=== PATIENT | male | born 2000 | race Caucasian/White ===

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

== ENCOUNTER 2020-08-02 14:56 | Emergency (ER) | payer MEDICAID, OTHER ==
[~2020-08-02] VITALS: Ht 172.7 cm; Wt 113.6 kg
[2020-08-02 15:51] LABS: BASOPHILS % (AUTO) 0.6 % (0-1); EOSINOPHILS # (AUTO) 0.2 X10'3 (0-0.9); HEMATOCRIT 50.1 % (42.0-52.0); HEMOGLOBIN 17.2 g/dl (14.0-17.9); LYMPHOCYTES # (AUTO) 1.7 X10'3 (1.1-4.8); LYMPHOCYTES % (AUTO) 24.3 % (21-51); MEAN CORPUSCULAR HEMOGLOBIN 29.2 PG (27.0-31.0); MEAN CORPUSCULAR HGB CONC 34.3 g/dL (33.0-36.5); MEAN CORPUSCULAR VOLUME 85.3 FL (78-98); MEAN PLATELET VOLUME 9.4 FL (7.4-10.4); MONOCYTES # (AUTO) 0.6 X10'3 (0-0.9); MONOCYTES % (AUTO) 9.4 % (2-12); NEUTROPHILS # (AUTO) 4.3 X10'3 (1.8-7.7); NEUTROPHILS % (AUTO) 62.7 % (42-75); PLATELET COUNT 306 X10'3 (140-440); RED BLOOD COUNT 5.87 X10'6 (4.70-6.10); WHITE BLOOD COUNT 6.8 X10'3 (4.5-11.0)
[2020-08-02 15:59] LABS: ALANINE AMINOTRANSFERASE 28 U/L (12-78); ALBUMIN 4.2 G/DL (3.4-5.0); ALBUMIN/GLOBULIN RATIO 1.1 (1.1-1.5); ALKALINE PHOSPHATASE 81 IU/L (20-180); ANION GAP 9 (8-16); ASPARTATE AMINO TRANSFERASE 16 U/L (10-37); BILIRUBIN,TOTAL 0.6 MG/DL (0.1-1.0); BLOOD UREA NITROGEN 6 MG/DL (7-18); BUN/CREATININE RATIO 5.4 (5.4-32.0); CALCIUM 9.2 MG/DL (8.5-10.1); CHLORIDE 103 MMOL/L (99-107); CREATININE 1.12 MG/DL (0.60-1.10); GLUCOSE 94 MG/DL (70-104); POTASSIUM 4.1 MMOL/L (3.5-5.1); SODIUM 138 MMOL/L (135-145); TOTAL CARBON DIOXIDE 25.9 MMOL/L (24-32); TOTAL PROTEIN 8.1 G/DL (6.4-8.2); eGFR 84 ML/MIN
[2020-08-02 16:19] LABS: ETHANOL < 0.010 GM/DL (0.0-0.010)
--- NOTE | 2020-08-02 16:33 | NUR ---
Pt denies active s/i at this time saying "I think about it and just wanted to come in before I did anything." Pt reports jumping in front of a car as his plan with no specific timeframe. pt reports being in [facility] ~ 4 months ago for OD attempt where purportedly he was started on long-term injectables. Pt denies H/I and audio/visual hallucinations at this time. Mood and affect are appropriate and WNL at this time. He is cooperative with staff and engages readily.
[2020-08-02 17:08] LABS: URINE AMPHETAMINE SCREEN NEGATIVE (Neg); URINE BARBITUATE SCREEN NEGATIVE (Neg); URINE BENZODIAZEPINES SCREEN NEGATIVE (Neg); URINE CANNABINOID SCREEN NEGATIVE (Neg); URINE COCAINE SCREEN NEGATIVE (Neg); URINE METHADONE SCREEN NEGATIVE (Neg); URINE OPIATE SCREEN NEGATIVE (Neg); URINE PHENCYCLIDINE SCREEN NEGATIVE (Neg)
--- NOTE | 2020-08-02 18:34 | NUR ---
ASSUMED CARE FROM KATALINA PURVIS. SPOKE WITH PATIENT COOPERATIVE DENIES ANY IDEATIONS AT THIS TIME SPOKE ABOUT HOW HE NEEDED TO CHECK IN BEFORE [facility]AS THOUGHTS PROGRESSED TO ACTION UPON HIS THOUGTHS
--- NOTE | 2020-08-02 18:44 | NUR ---
Myriam quinones in [facility] - 08/03/20 at 0053 by YUE FIORI RETURNED TO PATIENT
[2020-08-02 18:51] LABS: CLARITY,URINE CLEAR (Clear); COLOR,URINE YELLOW (Yellow); GLUCOSE, URINE NEGATIVE (Neg); KETONES,URINE NEGATIVE (Neg); LEUKOCYTE ESTERASE ,URINE NEGATIVE (Neg); NITRITES, URINE NEGATIVE (Neg); OCCULT BLOOD,URINE NEGATIVE (Neg); PH,URINE 6.5 (4.8-8.0); PROTEIN,URINE NEGATIVE (Neg); UROBILINOGEN,URINE 0.2 E.U/dL (0.2-1.0)
[2020-08-02 19:10] LABS: UA COLLECTION TYPE VOIDED
--- NOTE | 2020-08-02 19:16 | NUR ---
pt packet faxed to [facility]
[2020-08-02] MEDS ORDERED: QUET25TA34 PO (20:19)
--- NOTE | 2020-08-02 20:30 | NUR ---
SAT WITH PATIENT AND ASKED WHAT TRIGGERED HIS THOUGHTS OF SI HE REPORT THAT HIS FAMILY DOES A GROUP CHAT HIS FATHER SISTER AND HIMSELF AND THEY BEGAN ARGUING, IT MADE HIM SAD AND IT TRIGGERED THOUGHTS THAT HE DID NOT WANT TO LIVE ANY MORE AND BETTER COME IN TO BE SEEN
[2020-08-02] MEDS ORDERED: QUEtiapine 25mg tablet PO SCH (21:00)
--- NOTE | 2020-08-02 21:30 | NUR ---
AWAKE REQUESTING TO DRAW. COLORED CRAYONS AND PAPER GIVEN. NO OTHER REQUESTS, COOPERATIVE.
--- NOTE | 2020-08-02 22:30 | NUR ---
AWAKE HUMMING WHILE STARING AT CEILING. REDIRECTED AND ENGAGED IN CONVERSATION WITH FOCUSED INTENT. DENIES HALLUCINATIONS VISUAL OR AUDITORY. ANSWERS QUESTIONS APPROPRIATELY.
--- NOTE | 2020-08-02 23:30 | NUR ---
EYS CLOSED NO SIGN OF DISTRESSED FACIAL MUSCLES RELAXED
--- NOTE | 2020-08-03 00:30 | NUR ---
SLEEPING, EYES CLOSED EVEN AN UNLABORED RESPIRATIONS.
--- NOTE | 2020-08-03 01:30 | NUR ---
EYES CLOSED NO SIGNS OF DISTRESS
--- NOTE | 2020-08-03 02:11 | NUR ---
LYING ON RIGHT SIDE, EYES CLOSED RESPIRATION EVEN AND UNLABORED
--- NOTE | 2020-08-03 03:00 | NUR ---
eyes closed lying on left side. No signs of distress.
--- NOTE | 2020-08-03 03:56 | NUR ---
sleeping facial muslces relaxed no sign of distress. Respirations even and unlabored
--- NOTE | 2020-08-03 05:49 | NUR ---
uneventful night, no compaints slept for 6 hours.
--- NOTE | 2020-08-03 06:41 | NUR ---
patient asleep.We will monitor.
--- NOTE | 2020-08-03 09:06 | NUR ---
[facility] WITH PATIENT
--- NOTE | 2020-08-03 10:16 | NUR ---
Assumed care of the patient from Erasmo Del Toro RN. Pt is resting on the bed with even and unlabored respirations.
--- NOTE | 2020-08-03 11:22 | NUR ---
Pt swabbed for COVID-19 as a rapid swab to rule out viral infection for placement in a behavioral health facility. Pt reports his last drink of alcohol was over a month ago and he does not drink on a routine basis.
--- NOTE | 2020-08-03 11:52 | NUR ---
[facility]
--- NOTE | 2020-08-03 12:39 | NUR ---
Pt still has pending COVID-19 swab results. Pt has no change in condition.
--- NOTE | 2020-08-03 13:01 | NUR ---
Pt given a lunch tray, he is sitting upright eating lunch at this time.
--- NOTE | 2020-08-03 13:44 | NUR ---
Negative COVID results faxed to [facility] office. [facility] staff member phoned back to confirm receipt of the result and that [facility] has accepted the patient for admission but the transport time will not likely be scheduled to happen prior to 1900 today. Further details of the ETA to come later.
--- NOTE | 2020-08-03 14:34 | NUR ---
Pt ate a sandwich because he reports still being hungry after lunch. Pt has no distress noted.
--- NOTE | 2020-08-03 15:30 | NUR ---
Pt has no change in condition, in line of sight of the nurse's station. Continuing to monitor.
--- NOTE | 2020-08-03 16:32 | NUR ---
Pt has no change in condition, in line of sight of the nurse's station. Continuing to monitor.
--- NOTE | 2020-08-03 17:12 | NUR ---
Pt's vitals rechecked by the radial drill press operatorGeneva Kaur. Pt is calm and cooperative at this time.
[2020-08-03 17:18] VITALS: BP 121/53
--- NOTE | 2020-08-03 18:08 | NUR ---
Pt given his dinner tray. Pt is calm and cooperative. Pt has no complaints at this time.
== END 2020-08-03 19:10 ==
LOC: ER 14:56
DX: R45.851 Suicidal ideations (principal); Z20.828 Contact with and (suspected) exposure to other viral communicable diseases; F20.9 Schizophrenia, unspecified; Z72.89 Other problems related to lifestyle; Z59.0 Homelessness
CPT/HCPCS: 36415; 80053; 80305; 80320; 81003; 84443; 85025; 87635; 99285; C9803

== ENCOUNTER 2021-01-23 10:48 | Emergency (ER) | payer MEDICAID ==
[~2021-01-23] VITALS: Ht 172.7 cm; Wt 105.8 kg
[~2021-01-23 10:48] MED LIST: QUET25TA34 PO
--- NOTE | 2021-01-23 11:24 | NUR ---
PT BROUGHT FROM TRIAGE TO ROOM 20 BY STAFF WITHOUT INCIDENT
[2021-01-23 11:38] LABS: BASOPHILS # (AUTO) 0.1 X10'3 (0-0.2); BASOPHILS % (AUTO) 0.7 % (0-1); EOSINOPHILS # (AUTO) 0.2 X10'3 (0-0.9); EOSINOPHILS % (AUTO) 2.4 % (0-6); HEMOGLOBIN 16.5 g/dl (14.0-17.9); LYMPHOCYTES # (AUTO) 2.7 X10'3 (1.1-4.8); LYMPHOCYTES % (AUTO) 35.1 % (21-51); MEAN CORPUSCULAR HGB CONC 35.1 g/dL (33.0-36.5); MEAN CORPUSCULAR VOLUME 85.5 FL (78-98); MONOCYTES # (AUTO) 0.6 X10'3 (0-0.9); MONOCYTES % (AUTO) 8.1 % (2-12); NEUTROPHILS # (AUTO) 4.1 X10'3 (1.8-7.7); NEUTROPHILS % (AUTO) 53.7 % (42-75); PLATELET COUNT 264 X10'3 (140-440); RED CELL DISTRIBUTION WIDTH 12.7 % (11.5-14.5); WHITE BLOOD COUNT 7.7 X10'3 (4.5-11.0)
[2021-01-23 11:51] LABS: CLARITY,URINE CLEAR (Clear); COLOR,URINE YELLOW (Yellow); GLUCOSE, URINE NEGATIVE (Neg); KETONES,URINE NEGATIVE (Neg); LEUKOCYTE ESTERASE ,URINE NEGATIVE (Neg); NITRITES, URINE NEGATIVE (Neg); OCCULT BLOOD,URINE NEGATIVE (Neg); PROTEIN,URINE TRACE mg/dl (Neg); UA COLLECTION TYPE CLN CATCH MIDSTREAM
[2021-01-23 11:54] LABS: ALANINE AMINOTRANSFERASE 33 U/L (12-78); ALBUMIN 4.2 G/DL (3.4-5.0); ALBUMIN/GLOBULIN RATIO 1.1 (1.1-1.5); ALKALINE PHOSPHATASE 73 IU/L (20-180); ANION GAP 11 (8-16); ASPARTATE AMINO TRANSFERASE 12 U/L (10-37); BILIRUBIN,TOTAL 0.5 MG/DL (0.1-1.0); BLOOD UREA NITROGEN 8 MG/DL (7-18); CHLORIDE 106 MMOL/L (99-107); CREATININE 1.15 MG/DL (0.60-1.10); GLUCOSE 88 MG/DL (70-104); POTASSIUM 3.7 MMOL/L (3.5-5.1); SODIUM 140 MMOL/L (135-145); eGFR 81 ML/MIN
[2021-01-23 11:58] LABS: MUCUS STRANDS MANY /LPF (Neg); SQUAMOUS EPITHELIAL CELL,UR FEW /LPF (FEW)
--- NOTE | 2021-01-23 11:58 | NUR ---
SENT PRIMARY NURSE ON A BREAK, THE PATIENT WAS SITTING UP IN BED AND ASKED FOR A BOOK TO READ. HE WAS ASSISTED TO PICK OUT A BOOK AND HE AMBULATED BACK TO HIS BED AND BEGAN READING. THE PATIENT'S RESPIRATIONS APPEARED NORMAL AND HE WAS NOT IN ANY DISTRESS AT THIS TIME.
[2021-01-23 11:59] LABS: BACTERIA,URINE FEW /HPF (Neg); RBC,URINE 0-2 /HPF (0-2)
[2021-01-23 12:00] LABS: SPERM FEW /HPF (NEGATIVE)
[2021-01-23 12:01] LABS: URINE AMPHETAMINE SCREEN NEGATIVE (Neg); URINE BARBITUATE SCREEN NEGATIVE (Neg); URINE BENZODIAZEPINES SCREEN NEGATIVE (Neg); URINE CANNABINOID SCREEN NEGATIVE (Neg); URINE COCAINE SCREEN NEGATIVE (Neg); URINE METHADONE SCREEN NEGATIVE (Neg); URINE OPIATE SCREEN NEGATIVE (Neg); URINE PHENCYCLIDINE SCREEN NEGATIVE (Neg); WBC,URINE 0-4 /HPF (0-4)
[2021-01-23 12:03] LABS: ETHANOL < 0.010 GM/DL (0.0-0.010)
[2021-01-23] MEDS ORDERED: acetaminophen 325mg tablet PO ONE (12:10)
--- NOTE | 2021-01-23 12:30 | NUR ---
PT AWAKE, CALM, NO NEEDS AT THIS TIME
[2021-01-23] MEDS ORDERED: PALI117D IM (12:40)
--- NOTE | 2021-01-23 12:40 | NUR ---
FAXED PACKET [facility]
--- NOTE | 2021-01-23 13:42 | NUR ---
PT IS PRONE IN BED, EYES CLOSED, REGULAR BREATHING PRESENT, NO NEEDS AT THIS TIME
--- NOTE | 2021-01-23 14:57 | NUR ---
SENT PRIMARY NURSE ON LUNCH, THE PATIENT WAS SITTING UP IN BED WITH [facility] DOING THEIR INTERVIEW, NEXT AT BEDSIDE WAS MORE WORKERS FROM [facility] TO INTERVIEW HIM. THE PATIENT WAS CALM DURING THESE INTERVIEWS. THE PATIENT'S RESPIRATIONS APPEARED NORMAL AND HE WAS NOT IN ANY DISTRESS AT THE MOMENT.
--- NOTE | 2021-01-23 15:30 | NUR ---
PT LAYING PRONE IN BED, REGULAR BREATHING OBSERVED, NO NEEDS AT THIS TIME
--- NOTE | 2021-01-23 15:45 | NUR ---
PT WAS PLACED ON A 5150
--- NOTE | 2021-01-23 16:30 | NUR ---
PT IS SUPINE IN BED, ASLEEP, REGULAR BREATHING PRESENT, NO NEEDS AT THIS TIME
--- NOTE | 2021-01-23 17:22 | NUR ---
PT HAS BEEN ACCEPTED AT [facility], PER FAVIOLA, BY DR FREEMAN, UNSURE OF TIME [facility]
--- NOTE | 2021-01-23 18:53 | NUR ---
One to one with the patient to assess severity of depressive symptoms and self harm risk. His affect is restricted. He was very cooperative with the evening assessment. He stated that he has not been sleeping well at night. He stated that he has been feeling depressed and suicidal since he was moved into an apartment with a new roommate. He stated that he has command auditory hallucinations to harm himself. He reports suicidal thoughts to overdose or to cut his wrists. He has a casemanager through [employer] [employer] [facility]
--- NOTE | 2021-01-23 20:32 | NUR ---
The patient appears to be sleeping
--- NOTE | 2021-01-23 22:29 | NUR ---
The patient appears to be sleeping
--- NOTE | 2021-01-24 00:51 | NUR ---
The patient appears to be sleeping
--- NOTE | 2021-01-24 02:34 | NUR ---
The patient appears to be sleeping
--- NOTE | 2021-01-24 04:21 | NUR ---
The patient is awake and watching TV
[2021-01-24 05:41] VITALS: BP 122/76
--- NOTE | 2021-01-24 08:11 | NUR ---
BREAKFAST TRAY GIVEN
--- NOTE | 2021-01-24 09:07 | NUR ---
RN calls [facility] to double check is Nurse to Nurse was conducted. RN spoke to sharepoint manager who transfered me to the honing machine operator production. There was no answer, RN left voice message and will try again in a few minutes.
--- NOTE | 2021-01-24 09:14 | NUR ---
Pt picked up by Marisol Christopher
== END 2021-01-24 09:18 | disposition home or self-care (01) ==
LOC: ER 10:48
DX: R45.851 Suicidal ideations (principal); Z20.822 Contact with and (suspected) exposure to COVID-19; F20.9 Schizophrenia, unspecified; Z72.89 Other problems related to lifestyle; Z59.0 Homelessness; Z79.899 Other long term (current) drug therapy
CPT/HCPCS: 36415; 80053; 80305; 80320; 81001; 84443; 85025; 87426; 99285

== ENCOUNTER 2021-09-25 07:20 | Emergency (ER) | payer MEDICAID ==
[~2021-09-25] VITALS: Ht 172.7 cm; Wt 102.3 kg
[~2021-09-25 07:20] MED LIST changes: +PALI117D IM; -QUET25TA34 PO
[2021-09-25] MEDS ORDERED: TRAZ-256 PO (07:38)
[2021-09-25] MEDS ORDERED: aspirin 81mg tab.chew PO ONE (07:45)
[2021-09-25] MEDS ORDERED: mag hydrox/Alum hydrox/simeth 30ml oral suspension PO ONE (07:50)
[2021-09-25] MEDS ORDERED: sucralfate 1gm/10ml UD suspension PO SCH (07:50)
[2021-09-25] MEDS ORDERED: LIDOcaine Viscous 15ml cup MM PRN (07:50)
[2021-09-25] MEDS ORDERED: sucralfate 1 gm tablet PO ONE (08:10)
[2021-09-25 08:55] LABS: BASOPHILS # (AUTO) 0.1 X10'3 (0-0.2); BASOPHILS % (AUTO) 0.6 % (0-1); EOSINOPHILS # (AUTO) 0.3 X10'3 (0-0.9); EOSINOPHILS % (AUTO) 3.8 % (0-6); HEMATOCRIT 47.7 % (42.0-52.0); HEMOGLOBIN 16.7 g/dl (14.0-17.9); LYMPHOCYTES # (AUTO) 2.2 X10'3 (1.1-4.8); LYMPHOCYTES % (AUTO) 24.7 % (21-51); MEAN CORPUSCULAR HEMOGLOBIN 29.6 PG (27.0-31.0); MEAN CORPUSCULAR HGB CONC 34.9 g/dL (33.0-36.5); MEAN CORPUSCULAR VOLUME 84.7 FL (78-98); MEAN PLATELET VOLUME 9.8 FL (7.4-10.4); MONOCYTES # (AUTO) 0.7 X10'3 (0-0.9); MONOCYTES % (AUTO) 7.6 % (2-12); NEUTROPHILS # (AUTO) 5.7 X10'3 (1.8-7.7); NEUTROPHILS % (AUTO) 63.3 % (42-75); PLATELET COUNT 288 X10'3 (140-440); RED BLOOD COUNT 5.63 X10'6 (4.70-6.10); RED CELL DISTRIBUTION WIDTH 12.4 % (11.5-14.5); WHITE BLOOD COUNT 8.9 X10'3 (4.5-11.0)
[2021-09-25 09:19] LABS: ALANINE AMINOTRANSFERASE 48 U/L (12-78); ALBUMIN 4.2 G/DL (3.4-5.0); ALKALINE PHOSPHATASE 77 IU/L (20-180); ANION GAP 12 (8-16); ASPARTATE AMINO TRANSFERASE 17 U/L (10-37); BILIRUBIN,TOTAL 0.4 MG/DL (0.1-1.0); BLOOD UREA NITROGEN 8 MG/DL (7-18); CALCIUM 9.2 MG/DL (8.5-10.1); CHLORIDE 103 MMOL/L (99-107); GLUCOSE 92 MG/DL (70-104); POTASSIUM 3.5 MMOL/L (3.5-5.1); SODIUM 140 MMOL/L (135-145); TOTAL CARBON DIOXIDE 25.4 MMOL/L (24-32); TOTAL PROTEIN 8.3 G/DL (6.4-8.2); eGFR > 90 ML/MIN
[2021-09-25 09:31] LABS: MAGNESIUM 1.8 MG/DL (1.5-2.4)
[2021-09-25 09:44] LABS: D-DIMER < 0.19 MG/L FEU (0-0.50)
[2021-09-25 10:37] VITALS: BP 145/103
== END 2021-09-25 10:42 | disposition home or self-care (01) ==
LOC: ER 07:21
DX: R07.89 Other chest pain (principal); I25.10 Atherosclerotic heart disease of native coronary artery without angina pectoris; R11.10 Vomiting, unspecified; F20.9 Schizophrenia, unspecified; Z98.890 Other specified postprocedural states; Z72.89 Other problems related to lifestyle; Z59.00 Homelessness unspecified; Z79.899 Other long term (current) drug therapy
CPT/HCPCS: 36415; 71045; 80053; 83735; 83880; 84484; 85025; 85379; 93005; 99285